=== PATIENT | male | born 1995 | race Caucasian/White ===

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

== ENCOUNTER 2017-01-03 12:17 | Emergency (ER) | payer BC, OTHER ==
[2017-01-03 12:28] VITALS: BP 124/88
--- NOTE | 2017-01-03 12:34 | ED ---
Laceration/Wound HPI - HPI Summary HPI Summary: 21 male presents with complaints of right hand injury and lacerations after punching a car door window just [employer] ~30minutes ago. Patient admits to bleeding. Denies numbness/tingling. Denies pain and is able to move wrist and all digits. Patient states he has had multiple breaks and surgeries on that hand from previous punching incidents. States he was just angry. Denied any other injuries or complaints. No PMHx. Not on anticoagulants. Tetanus is UTD. - History of Current Complaint Stated Complaint: RT HAND LAC Time Seen by Provider: 01/03/17 12:32 Hx Obtained From: Patient Mechanism of Injury: Sharp/Blunt Trauma - punching throught a car glass window Onset/Duration: Sudden Onset Aggravating: Movement Alleviating: Compression Timing: Constant Onset Severity: Moderate Current Severity: None Pain Intensity: 0 Pain Scale Used: 0-10 Numeric Associated Signs & Symptoms: Erthema, Redness - lacerations, abrasion Related Hx: Dominant Hand (Right) - Allergy/Home Medications Allergies/Adverse Reactions: Allergies Allergy/AdvReac Type Severity Reaction Status Date / Time Morphine and Related Allergy Swelling Verified 04/22/16 16:18 PMH/Surg Hx/FS Hx/Imm Hx Endocrine/Hematology History: Denies: Hx Diabetes, Hx Thyroid Disease Cardiovascular History: Denies: Hx Hypertension Respiratory History: Denies: Hx Asthma, Hx Chronic Obstructive Pulmonary Disease (COPD) GI History: Denies: Hx Ulcer Sensory History: Denies: Hx Contacts or Glasses, Hx Hearing Aid Opthamlomology History: Denies: Hx Contacts or Glasses Neurological History: Denies: Hx Dementia, Hx Migraine, Hx Seizures, Hx Transient Ischemic Attacks (TIA) Psychiatric History: Denies: Hx Anxiety, Hx Depression, Hx Schizophrenia, Hx Bipolar Disorder - Surgical History Surgery Procedure, Year, and Place: WISDOM TOOTH REMOVAL 2012. Right hand 2014 Hx Anesthesia Reactions: No - Immunization History Date of Tetanus Vaccine: 4 months ago, 2017 Immunizations Up to Date: Yes Infectious Disease History: No Infectious Disease History: Denies: Hx Clostridium Difficile, Hx Hepatitis, Hx Human Immunodeficiency Virus (HIV), Hx of Known/Suspected MRSA, Hx Shingles, Hx Tuberculosis, Hx Known/ Suspected VRE, Hx Known/Suspected VRSA, History Other Infectious Disease, Traveled Outside the [place] in Last 30 Days - Family History Known Family History: Positive: Hypertension, Other - No known hx of diverticulosis or Crohns dz. - Social History Alcohol Use: None Substance Use Type: Reports: None Smoking Status (MU): Current Every Day Smoker Type: Cigarettes, Smokeless Tobacco Amount Used/How Often: 1-2 cans per day & 1 CIG/DAY Length of Time of Smoking/Using Tobacco: 5 years Have You Smoked in the Last Year: No Review of Systems Constitutional: Negative Cardiovascular: Negative Respiratory: Negative Gastrointestinal: Negative Musculoskeletal: Negative Positive: Other - lacerations and abrasion to right hand Neurological: Negative All Other Systems Reviewed And Are Negative: Yes Physical Exam Triage Information Reviewed: Yes Vital Signs On Initial Exam: Initial Vitals Temp Pulse Resp BP Pulse Ox 96.3 F 87 20 124/88 100 01/03/17 12:25 01/03/17 12:25 01/03/17 12:25 01/03/17 12:25 01/03/17 12:25 Vital Signs Reviewed: Yes Appearance: Positive: Well-Appearing, No Pain Distress, Well-Nourished Skin: Positive: Warm, Skin Color Reflects Adequate Perfusion, Dry, Erythema @ - right hand, Other - multiple abrasions noted on right hand, laceration ~2cm in length .5cm width of epidermal layer, without bone or tendon showing, without noteable FB or glass present on posterior 1st digit MCP joint. small superficial laceration noted on posterior 5th digit PIP joint approxiateely 1 cm. Wounds were irrigated, hand was cleaned. No other lacerations and normal skin exam elsewhere. no edema noted. multiple healed scars noted on right hand. Negative: Cold, Numb, Cyanosis @ Head/Face: Positive: Normal Head/Face Inspection Eyes: Positive: Conjunctiva Clear ENT: Positive: Normal ENT inspection, Hearing grossly normal Neck: Positive: Supple, Nontender, No Lymphadenopathy Respiratory/Lung Sounds: Positive: Clear to Auscultation, Breath Sounds Present. Negative: Rales, Rhonchi, Wheezes Cardiovascular: Positive: Normal, RRR, Pulses are Symmetrical in both Upper and Lower Extremities - 2+ radial b/l. Negative: Murmur, Rub Bowel Sounds: Positive: Present Musculoskeletal: Positive: Normal, Strength/ROM Intact, Pain @ - on palpation of lacerations on right hand, Other - no crepitus, step off or obvious bony deformities noted besides lacerations. oozing/bleeding no arterial bleeds. Negative: Limited @, Interruption @ Neurological: Positive: Normal, Sensory/Motor Intact - sensation intact, Alert, Oriented to Person Place, Time, CN Intact II-III, Reflexes Intact Psychiatric: Positive: Normal AVPU Assessment: Alert Procedures - Laceration/Wound Repair 1 Location: upper extremity - hand Description: Linear Anesthesia: Local, 1.0%, Lido Length, Depth and Shape: ~2cm length .5cm width and epidermal layer Betadine Prep?: Yes Irrigated w/ Saline (ccs): 200 Laceration/Wound Explored: clean, no foreign body removed Closure: Single Layer Suture Type: Prolene Number of Sutures: 5 Layer Closure?: No Sterile Dressing Applied?: Yes - nedra and salvador 2 Location: Other - right hand, 5th digit Description: Linear Length, Depth and Shape: 1cm, superficial Betadine Prep?: No Laceration/Wound Explored: clean, no foreign body removed Closure: Skin Adhesive Sterile Dressing Applied?: No Diagnostics - Vital Signs Vital Signs Temp Pulse Resp BP Pulse Ox 01/03/17 12:28 96.4 F 91 20 124/88 100 01/03/17 12:25 96.3 F 87 20 124/88 100 - Laboratory Lab Statement: Any lab studies that have been ordered have been reviewed, and results considered in the medical decision making process. - Radiology x-ray right hand Xray Interpretation: No Acute Changes - Deformity of the fifth metacarpal from old injury. No fracture is identified. Radiology Interpretation Completed By: Radiologist Laceration Repair Course/Dx - Course Course Of Treatment: patient has had multiple fractures and breaks of the right hand. no acute fracture noted on x-ray. however if pain persists or new symptoms develop recommended repeat imaging. did not want pain management while in ED as patient was in minimal pain. 5 sutures placed without complication using sterile technique. glued smaller lac on 5th digit. told to watch for signs of infection. aware of worsening signs and symptoms. follow up with PCP. keep clean and dry, remove in 7 days. teatnus was up to date 4 months ago. - Differential Dx Differental Diagnoses: Abscess, Avulsion, Cellulitis, Fracture, Healing Wound, Laceration, Tendon Laceration, Other - Clinical Impression Provider Diagnoses: Laceration of right hand, Abrasion of multiple sites of right hand and finger Discharge - Discharge Plan Condition: Stable Disposition: HOME Patient Education Materials: Care For Your Stitches (ED), Laceration (ED) Forms: *Work Release Referrals: Gio Ott MD [Primary Care Provider] - Additional Instructions: Take Aleve or Ibuprofen for pain and inflammation. If your symptoms worsen or new symptoms develop please return. Do not get hand wet or submerge hand in water for 24-48 hours. After, you may wash hands gently, do not scrub. Keep clean and dry. Keep dressing applied for the first 3-5 days. If you develop signs of infection such as redness, swelling, fever/chills, discharge please return to ED or follow up with PCP. Have stitches removed in 5-7 days.
--- NOTE | 2017-01-03 14:09 | RAD ---
Indication: Right hand pain. 4 views of the right hand demonstrates deformity of the fifth metacarpal likely from prior injury. No recent fracture is identified. No other bone or joint abnormality is identified. IMPRESSION: Deformity of the fifth metacarpal. No fracture is identified.
== END 2017-01-03 15:29 | disposition home or self-care (01) ==
LOC: ED 12:17
DX: S61.411A Laceration without foreign body of right hand, initial encounter (principal); S60.511A Abrasion of right hand, initial encounter; W22.8XXA Striking against or struck by other objects, initial encounter; Y93.9 Activity, unspecified; Y92.9 Unspecified place or not applicable; F17.210 Nicotine dependence, cigarettes, uncomplicated
CPT/HCPCS: 12002; 99281

== ENCOUNTER → 2017-04-02 03:08 | Emergency (ER) | payer SELFPAY ==
[2017-04-02 04:09] LABS: Hematocrit 39 % (42-52); Hemoglobin 13.6 g/dl (14.0-18.0); Mean Corpuscular HGB Conc 35 g/dl (31-36); Mean Corpuscular Hemoglobin 30 pg (27-31); Mean Corpuscular Volume 86 fL (80-94); Mean Platelet Volume 10 um3 (7.4-10.4); Red Blood Count 4.57 10^6/ul (4.0-5.4); Red Cell Distribution Width 13 % (10.5-15); White Blood Count 7.4 10^3/ul (3.5-10.8)
[2017-04-02 04:20] LABS: ALT 13 U/L (7-52); AST 14 U/L (13-39); Albumin 4.5 g/dL (3.2-5.2); Alkaline Phosphatase 57 U/L (34-104); Anion Gap 6 mmol/L (2-11); BUN/Creatinine Ratio 16.5 (8-20); Benzodiazepine Urine Screen None Detected (None Detect); Blood Urea Nitrogen 16 mg/dL (6-24); CO2 Carbon Dioxide 27 mmol/L (22-32); Calcium 9.6 mg/dL (8.6-10.3); Chloride 106 mmol/L (101-111); EGFR African American 128.2 (>60); EGFR Non-African American 99.7 (>60); Globulin 2.2 g/dL (2-4); Glucose 96 mg/dL (70-100); Potassium 3.8 mmol/L (3.5-5.0); Sodium 139 mmol/L (133-145); Total Protein 6.7 g/dL (6.4-8.9)
[2017-04-02 04:31] LABS: Urine Bacteria Absent (Absent); Urine Bilirubin Negative (Negative); Urine Glucose Negative (Negative); Urine Nitrite Negative (Negative)
[2017-04-02 04:36] LABS: Acetaminophen < 15 mcg/mL; Alcohol < 10 mg/dL (<10); Salicylate < 2.50 mg/dL (<30)
[2017-04-02 04:51] VITALS: BP 135/67
[2017-04-02 04:54] LABS: TSH (Thyroid Stimulating Horm) 2.32 mcIU/mL (0.34-5.60)
--- NOTE | 2017-04-02 05:10 | ED ---
Rashida Barraza Rebecca, scribed for Alex Sears MD on 04/02/17 at 0504 . Psychiatric Complaint - HPI Summary HPI Summary: Pt is a 21 y/o M who presents to ED c/o SIs. SIs have been present for multiple days with no plan at this time. Sx aggravated by recent stress of a break up and the of a good friend. Denies any pain at this time. No PMHx psychiatric issues. - History Of Current Complaint Chief Complaint: EDMentalHealth Time Seen by Provider: 04/02/17 03:23 Hx Obtained From: Patient Onset/Duration: Lasting Days, Still Present Aggravating Factor(s): Recent Stress Alleviating Factor(s): Nothing Related History: Negative For: Prior Psychiatric Issues Has Suicidal: Reports: Thoughts. Denies: With A Plan Recent Stressor(s): Break up and of a good friend - Allergies/Home Medications Allergies/Adverse Reactions: Allergies Allergy/AdvReac Type Severity Reaction Status Date / Time Morphine and Related Allergy Swelling Verified 04/22/16 16:18 PMH/Surg Hx/FS Hx/Imm Hx Endocrine/Hematology History: Denies: Hx Diabetes, Hx Thyroid Disease Cardiovascular History: Denies: Hx Hypertension Respiratory History: Denies: Hx Asthma, Hx Chronic Obstructive Pulmonary Disease (COPD) GI History: Denies: Hx Ulcer Sensory History: Denies: Hx Contacts or Glasses, Hx Hearing Aid Opthamlomology History: Denies: Hx Contacts or Glasses Neurological History: Denies: Hx Dementia, Hx Migraine, Hx Seizures, Hx Transient Ischemic Attacks (TIA) Psychiatric History: Denies: Hx Anxiety, Hx Depression, Hx Schizophrenia, Hx Bipolar Disorder - Surgical History Surgery Procedure, Year, and Place: WISDOM TOOTH REMOVAL 2012. Right hand 2014 Hx Anesthesia Reactions: No - Immunization History Date of Tetanus Vaccine: 4 months ago, 2017 Infectious Disease History: No Infectious Disease History: Denies: Hx Clostridium Difficile, Hx Hepatitis, Hx Human Immunodeficiency Virus (HIV), Hx of Known/Suspected MRSA, Hx Shingles, Hx Tuberculosis, Hx Known/ Suspected VRE, Hx Known/Suspected VRSA, History Other Infectious Disease, Traveled Outside the [place] in Last 30 Days - Family History Known Family History: Positive: Hypertension, Other - No known hx of diverticulosis or Crohns dz. - Social History Alcohol Use: None Substance Use Type: Reports: None Smoking Status (MU): Current Every Day Smoker Type: Cigarettes, Smokeless Tobacco Amount Used/How Often: 1-2 cans per day & 1 CIG/DAY Length of Time of Smoking/Using Tobacco: 5 years Have You Smoked in the Last Year: No Review of Systems Negative: Fever Positive: Other - SIs All Other Systems Reviewed And Are Negative: Yes Physical Exam Triage Information Reviewed: Yes Vital Signs On Initial Exam: Initial Vitals Temp Pulse Resp BP Pulse Ox 97.7 F 86 18 126/80 98 04/02/17 03:04/02/17 03:04/02/17 03:04/02/17 03:04/02/17 03:09 Vital Signs Reviewed: Yes Appearance: Positive: Well-Appearing, No Pain Distress Skin: Positive: Warm, Other - superficial arm lacs Head/Face: Positive: Normal Head/Face Inspection Eyes: Positive: ARELI ENT: Positive: Hearing grossly normal Neck: Positive: Supple Respiratory/Lung Sounds: Positive: Breath Sounds Present Cardiovascular: Positive: RRR Abdomen Description: Positive: Nontender, Soft Musculoskeletal: Positive: Strength/ROM Intact Neurological: Positive: Alert, Oriented to Person Place, Time, Normal Gait - Fadi Coma Scale Coma Scale Total: 15 Diagnostics - Vital Signs Vital Signs Temp Pulse Resp BP Pulse Ox 04/02/17 04:50 98.7 F 72 17 135/67 99 04/02/17 04:03 97.9 F 71 18 117/69 99 04/02/17 03:09 97.7 F 86 18 126/80 98 - Laboratory Lab Results: Lab Results 04/02/17 04/02/17 04/02/17 Range/Units 03:50 03:50 03:50 WBC 7.4 (3.5-10.8) 10^3/ul RBC 4.57 (4.0-5.4) 10^6/ul Hgb 13.6 L (14.0-18.0) g/dl Hct 39 L (42-52) % MCV 86 (80-94) fL MCH 30 (27-31) pg MCHC 35 (31-36) g/dl RDW 13 (10.5-15) % Plt Count 212 (150-450) 10^3/ul MPV 10 (7.4-10.4) um3 Neut % (Auto) 73.3 (38-83) % Lymph % (Auto) 19.5 L (25-47) % Dawes % (Auto) 5.2 (1-9) % Eos % (Auto) 1.5 (0-6) % Baso % (Auto) 0.5 (0-2) % Absolute Neuts (auto) 5.4 (1.5-7.7) 10^3/ul Absolute Lymphs (auto) 1.4 (1.0-4.8) 10^3/ul Absolute Monos (auto) 0.4 (0-0.8) 10^3/ul Absolute Eos (auto) 0.1 (0-0.6) 10^3/ul Absolute Basos (auto) 0 (0-0.2) 10^3/ul Absolute Nucleated RBC 0.01 10^3/ul Nucleated RBC % 0.1 Sodium 139 (133-145) mmol/L Potassium 3.8 (3.5-5.0) mmol/L Chloride 106 (101-111) mmol/L Carbon Dioxide 27 (22-32) mmol/L Anion Gap 6 (2-11) mmol/L BUN 16 (6-24) mg/dL Creatinine 0.97 (0.67-1.17) mg/dL Est GFR ( Amer) 128.2 (>60) Est GFR (Non-Af Amer) 99.7 (>60) BUN/Creatinine Ratio 16.5 (8-20) Glucose 96 (70-100) mg/dL Calcium 9.6 (8.6-10.3) mg/dL Total Bilirubin 0.50 (0.2-1.0) mg/dL AST 14 (13-39) U/L ALT 13 (7-52) U/L Alkaline Phosphatase 57 (34-104) U/L Total Protein 6.7 (6.4-8.9) g/dL Albumin 4.5 (3.2-5.2) g/dL Globulin 2.2 (2-4) g/dL Albumin/Globulin Ratio 2.0 (1-3) TSH 2.32 (0.34-5.60) mcIU/mL Urine Color Urine Appearance Urine pH (5-9) Ur Specific Pearson (1.010-1.030) Urine Protein (Negative) Urine Ketones (Negative) Urine Blood (Negative) Urine Nitrate (Negative) Urine Bilirubin (Negative) Urine Urobilinogen (Negative) Ur Leukocyte Esterase (Negative) Urine WBC (Auto) (Absent) Urine RBC (Auto) (Absent) Ur Squamous Epith Cells (Absent) Urine Bacteria (Absent) Urine Glucose (Negative) Salicylates < 2.50 (<30) mg/dL Urine Opiates Screen None detected (None Detect) Acetaminophen < 15 mcg/mL Ur Barbiturates Screen None detected (None Detect) Ur Phencyclidine Scrn None detected (None Detect) Ur Amphetamines Screen None detected (None Detect) U Benzodiazepines Scrn None detected (None Detect) Urine Cocaine Screen None detected (None Detect) U Cannabinoids Screen Presumptive positive H (None Detect) Serum Alcohol < 10 (<10) mg/dL 04/02/17 Range/Units 03:50 WBC (3.5-10.8) 10^3/ul RBC (4.0-5.4) 10^6/ul Hgb (14.0-18.0) g/dl Hct (42-52) % MCV (80-94) fL MCH (27-31) pg MCHC (31-36) g/dl RDW (10.5-15) % Plt Count (150-450) 10^3/ul MPV (7.4-10.4) um3 Neut % (Auto) (38-83) % Lymph % (Auto) (25-47) % Dawes % (Auto) (1-9) % Eos % (Auto) (0-6) % Baso % (Auto) (0-2) % Absolute Neuts (auto) (1.5-7.7) 10^3/ul Absolute Lymphs (auto) (1.0-4.8) 10^3/ul Absolute Monos (auto) (0-0.8) 10^3/ul Absolute Eos (auto) (0-0.6) 10^3/ul Absolute Basos (auto) (0-0.2) 10^3/ul Absolute Nucleated RBC 10^3/ul Nucleated RBC % Sodium (133-145) mmol/L Potassium (3.5-5.0) mmol/L Chloride (101-111) mmol/L Carbon Dioxide (22-32) mmol/L Anion Gap (2-11) mmol/L BUN (6-24) mg/dL Creatinine (0.67-1.17) mg/dL Est GFR ( Amer) (>60) Est GFR (Non-Af Amer) (>60) BUN/Creatinine Ratio (8-20) Glucose (70-100) mg/dL Calcium (8.6-10.3) mg/dL Total Bilirubin (0.2-1.0) mg/dL AST (13-39) U/L ALT (7-52) U/L Alkaline Phosphatase (34-104) U/L Total Protein (6.4-8.9) g/dL Albumin (3.2-5.2) g/dL Globulin (2-4) g/dL Albumin/Globulin Ratio (1-3) TSH (0.34-5.60) mcIU/mL Urine Color Straw Urine Appearance Clear Urine pH 7.0 (5-9) Ur Specific Pearson 1.008 L (1.010-1.030) Urine Protein Negative (Negative) Urine Ketones Negative (Negative) Urine Blood Negative (Negative) Urine Nitrate Negative (Negative) Urine Bilirubin Negative (Negative) Urine Urobilinogen Negative (Negative) Ur Leukocyte Esterase Trace H (Negative) Urine WBC (Auto) Trace(0-5/hpf) (Absent) Urine RBC (Auto) Trace(0-2/hpf) (Absent) Ur Squamous Epith Cells Present H (Absent) Urine Bacteria Absent (Absent) Urine Glucose Negative (Negative) Salicylates (<30) mg/dL Urine Opiates Screen (None Detect) Acetaminophen mcg/mL Ur Barbiturates Screen (None Detect) Ur Phencyclidine Scrn (None Detect) Ur Amphetamines Screen (None Detect) U Benzodiazepines Scrn (None Detect) Urine Cocaine Screen (None Detect) U Cannabinoids Screen (None Detect) Serum Alcohol (<10) mg/dL Result Diagrams: 04/02/17 03:50 04/02/17 03:50 Lab Statement: Any lab studies that have been ordered have been reviewed, and results considered in the medical decision making process. Course/Dx - Course Assessment/Plan: Pt is a 21 y/o M who presents to ED c/o SIs. SIs have been present for multiple days with no plan at this time. Sx aggravated by recent stress of a break up and the of a good friend. No PMHx psychiatric issues. Medically cleared for MHE at 0445. - Differential Dx/Clinical Impression Provider Diagnosis: Suicidal ideations Discharge - Discharge Plan Condition: Stable Disposition: HOME Referrals: Gio Ott MD [Primary Care Provider] - Additional Instructions: Per completion of a mental health evaluation, you are cleared for release and do not require inpatient psychiatric hospitalization at this time. Please go to nearest emergency room or call 911 if safety concerns arise or condition worsens. Contact [facility] for a walk in appointment today. [address] [place] [address] Important Phone Numbers: [facility] [phone] Suicide Prevention and Crisis Services [phone] National Suicide Prevention Lifeline 028-008-SKXE (3423) [facility] [phone] Alcoholics Anonymous [phone] [facility] [phone] [place] [employer] [phone] The documentation as recorded by the Rashida ochoa Rebecca accurately reflects the service I personally performed and the decisions made by me, Alex Sears MD.
== END | disposition home or self-care (01) ==
LOC: ED 03:08
DX: T14.91 Suicide attempt (principal); F17.210 Nicotine dependence, cigarettes, uncomplicated
CPT/HCPCS: 36415; 80053; 80307; 80320; 80329; 81003; 81015; 84443; 85025; 87086; 99284; G0480

== ENCOUNTER 2017-09-19 13:31 | Emergency (ER) | payer OTHER ==
[2017-09-19 13:41] VITALS: BP 130/91
--- NOTE | 2017-09-19 13:48 | UC ---
Complaint Male HPI - HPI Summary HPI Summary: Pt presents with b/l inguinal pain and penile drainage. He tells me that he had unprotected sex with his girlfriend about 1 month ago and 5 days ago she told him that she was unfaithful to him and has been dx'd with chlamydia. About 1 week ago he started to have mild penile drainage of white-yellow purulent matter with b/l inguinal and suprapubic tenderness. He is experiencing burning with urination. Denies fevers or chills. He has not had sexual intercourse since his girlfriend ~1 month ago. - History of Current Complaint Chief Complaint: UCGU Stated Complaint: STD TESTING Time Seen by Provider: 09/19/17 13:47 Hx Obtained From: Patient Onset/Duration: Gradual Onset Timing: Constant Severity Initially: Moderate Severity Currently: Moderate Pain Intensity: 4 Pain Scale Used: 0-10 Numeric - Allergies/Home Medications Allergies/Adverse Reactions: Allergies Allergy/AdvReac Type Severity Reaction Status Date / Time morphine Allergy Swelling Verified 09/19/17 13:41 PMH/Surg Hx/FS Hx/Imm Hx Previously Healthy: Yes - Surgical History Surgical History: Yes Surgery Procedure, Year, and Place: WISDOM TOOTH REMOVAL 2012. Right hand 2014 - Family History Known Family History: Positive: Hypertension, Other - No known hx of diverticulosis or Crohns dz. - Social History Alcohol Use: None Substance Use Type: None Smoking Status (MU): Former Smoker Type: Cigarettes, Smokeless Tobacco Amount Used/How Often: 1-2 cans per day & 1 CIG/DAY Length of Time of Smoking/Using Tobacco: 5 years Have You Smoked in the Last Year: No - Immunization History Vaccination Up to Date: Yes Review of Systems Constitutional: Negative Skin: Negative Respiratory: Negative Cardiovascular: Negative Gastrointestinal: Negative Genitourinary: Dysuria, Vaginal/Penile Burning, Vaginal/Penile Discharge, Vaginal/Penile Tenderness Neurological: Negative Psychological: Negative All Other Systems Reviewed And Are Negative: Yes Physical Exam Triage Information Reviewed: Yes Appearance: Well-Appearing, No Pain Distress, Well-Nourished Vital Signs: Initial Vital Signs Temp 98.3 F 09/19/17 13:37 Pulse 118 09/19/17 13:37 Resp 18 09/19/17 13:37 BP 130/91 09/19/17 13:37 Pulse Ox 99 09/19/17 13:37 Vital Signs Reviewed: Yes Neck: Positive: Supple, Nontender, No Lymphadenopathy Respiratory: Positive: Lungs clear, Normal breath sounds, No respiratory distress, No accessory muscle use Cardiovascular: Positive: RRR, No Murmur, Pulses Normal Abdomen Description: Positive: Nontender, No Organomegaly, Soft. Negative: CVA Tenderness (R), CVA Tenderness (L), Distended, Guarding Bowel Sounds: Positive: Present Neurological: Positive: Alert Psychological: Positive: Age Appropriate Behavior Skin: Negative: rashes - Additional Comments exam: Penile meatus with mild white discharge. B/L inguinal lymphadenopathy with moderate tenderness. Testes NTTP. No scrotal mass or lesions. Complaint Male Course/Dx - Course Course Of Treatment: I offered him more STD testing such as HIV, RPR, and hepatits - he declined due to fear of needles and said he just wants testing for GC/Chlamydia as his gf told him she has Chlamydia. Ceftriaxone 250mg and Azithromycin 1gm in clinic today. UA reveals infection, due to this and inguinal tenderness/lymphadenopathy - will place him on Doxycycline for 14 days and call with urine results. - Differential Dx/Diagnosis Provider Diagnoses: Chlamydia - penis. UTI Discharge - Discharge Plan Condition: Stable Disposition: HOME Prescriptions: DOXYcycline CAP(*) [DOXYcycline 100MG CAP(*)] 100 mg PO BID #28 cap Patient Education Materials: Chlamydia (ED) Referrals: Gio Ott MD [Primary Care Provider] - Additional Instructions: If you develop a fever, shortness of breath, chest pain, new or worsening symptoms - please call your PCP or go to the ED. Your blood pressure was mildly at todays visit. Please see your primary provider within 4 weeks for recheck and re-evaluation. 1) Please abstain from sexual activity for at least week AFTER your symptoms resolve.
[2017-09-19] MEDS ORDERED: Lidocaine 1% MPF* 2 ML VIAL INJ ONE (13:59)
[2017-09-19] MEDS ORDERED: cefTRIAXone VIAL(*) 250 MG VIAL IM ONE (13:59)
[2017-09-19] MEDS ORDERED: Azithromycin TAB* 250 MG PO ONE (14:00)
== END 2017-09-19 14:35 | disposition home or self-care (01) ==
LOC: UCEAST 13:31
DX: A56.8 Sexually transmitted chlamydial infection of other sites (principal); N39.0 Urinary tract infection, site not specified; Z87.891 Personal history of nicotine dependence
CPT/HCPCS: 81003; 87086; 87491; 87591; 96372; 99212; A9270-GY; G0463; J0696

== ENCOUNTER 2018-06-08 15:02 | Emergency (ER) | payer OTHER ==
[2018-06-08 15:15] VITALS: BP 117/72
--- NOTE | 2018-06-08 15:36 | UC ---
Complaint Male HPI - HPI Summary HPI Summary: 22 y/o male presents to the urgent care c/o pt states that he was informed by an ex girlfriend that cheated, she was positive for an std. pt was not told which std. pt states he is having burning with voiding and has bumps in his pelvic area. pt states this started about 2 weeks ago. - History of Current Complaint Chief Complaint: UCGU Stated Complaint: STD TESTING Time Seen by Provider: 06/08/18 15:36 Hx Obtained From: Patient Onset/Duration: Gradual Onset, Lasting Weeks - 1 week Pain Intensity: 5 - Allergies/Home Medications Allergies/Adverse Reactions: Allergies Allergy/AdvReac Type Severity Reaction Status Date / Time morphine Allergy Swelling Verified 06/08/18 15:15 PMH/Surg Hx/FS Hx/Imm Hx - Additional Past Medical History Additional PMH: Hx of Gonorrhea and chlamydia Previously Healthy: Yes - Surgical History Surgical History: Yes Surgery Procedure, Year, and Place: WISDOM TOOTH REMOVAL 2011. Right hand 2013 - Family History Known Family History: Positive: Hypertension, Other - No known hx of diverticulosis or Crohns dz. - Social History Alcohol Use: Rare Substance Use Type: None Smoking Status (MU): Former Smoker Type: eCigarettes Amount Used/How Often: 1-2 cans per day & 1 CIG/DAY Length of Time of Smoking/Using Tobacco: 5 years Have You Smoked in the Last Year: No - Immunization History Vaccination Up to Date: Yes Physical Exam - Summary Physical Exam Summary: VITAL SIGNS: Reviewed. GENERAL: Patient is a well developed and nourished male who is sitting comfortable in the examining table. Patient is not in any acute respiratory distress. HEAD AND FACE: No signs of trauma. No ecchymosis, hematomas or skull depressions. No sinus tenderness. EYES: PERRLA, EOMI x 2, No injected conjunctiva, clear watery eyes, no nystagmus. No photophobia. EARS: Hearing grossly intact. Ear canals and tympanic membranes are within normal limits. MOUTH: pharynx with no erythema, no exudates,no palatal petechiae. no B/L tonsillar enlargement Uvula in midline. NECK: Supple, trachea is midline, no lymphadenopathy, no JVD, no carotid bruit, no c-spine tenderness, neck with full ROM. CHEST: Symmetric, no tenderness at palpation LUNGS: Clear to auscultation bilaterally. No wheezing or crackles. CVS: Regular rate and rhythm, S1 and S2 present, no murmurs or gallops appreciated. ABDOMEN: Soft, non-tender. No signs of distention. No rebound no guarding, and no masses palpated. Bowel sounds are normal. 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 Urinary meatus clear. Foreskin retracts easily. BACK:no scoliosis or lesions, non tender to palpation, No B/L CVA tenderness EXTREMITIES: FROM in all major joints, no edema, no cyanosis or clubbing. NEURO: Alert and oriented x 3. No acute neurological deficits. Speech is normal and follows commands. SKIN: Dry and warm Triage Information Reviewed: Yes Vital Signs: Initial Vital Signs Temp 98.5 F 06/08/18 15:09 Pulse 105 06/08/18 15:09 Resp 18 06/08/18 15:09 BP 117/72 06/08/18 15:09 Pulse Ox 100 06/08/18 15:09 Complaint Male Course/Dx - Course Course Of Treatment: Sample sent to Lab for G/C, trichomonas and affirm panel. Swab taken from blisters and sent to lab for wound culture to r/o herpes. UA: + trace leukoesterase, 2+blood. test:negative. Pt given Rocephin IM inj and azithromycin PO for prophylactic treatment for GC/chlamydia. Rx Acyclovir Po for herpes and Metronidazole PO for trichomonas. Pt educated on STD's and protection. Given referral for [facility] for further management on STD's and PAP. Advised she will be notified if any abnormal result from lab. Pt understood and agreed with plan of care. - Differential Dx/Diagnosis Differential Diagnosis/HQI/PQRI: Epididymitis, Prostatitis, Urinary Tract Infection, Other Provider Diagnoses: 1-Gonorrhea and Chlamydia. 2- Genital Herpes. 3- Screening for STD's Discharge - Sign-Out/Discharge Documenting (check all that apply): Patient Departure - D/c home All imaging exams completed and their final reports reviewed: No Studies - Discharge Plan Condition: Stable Disposition: HOME Prescriptions: ValACYclovir (*) [Valtrex 1 GM(*)] 1 gm PO BID #14 tab Patient Education Materials: Genital Herpes Simplex (ED), Sexually Transmitted Diseases (ED), Gonorrhea (ED), Safe Sex Practices for Adolescents (ED) Referrals: Gio Ott MD [Primary Care Provider] - 3 Days Additional Instructions: 1-You were given prophylactic treatment today for GC and chlamydia and trichomonas for your penile discharge. 2- Specimen were sent to lab, if anything abnormality you will receive a call from us for further treatment. 3- Sample was taken from your penile rash to r/o Herpes. Please take Valtrex Po as directed to alleviate rash. 4-Please f/u w/ [facility] for further screening for STD's since your decline testing for HIV, Hep C, Hep B 5- If symptoms do not resolved please f/u w/ your PCP or return here at the clinic for further management - Billing Disposition and Condition Condition: STABLE Disposition: Home
[2018-06-08] MEDS ORDERED: cefTRIAXone VIAL(*) 250 MG VIAL IM ONE (15:57)
[2018-06-08] MEDS ORDERED: Lidocaine 1% MPF* 2 ML VIAL INJ ONE (15:59)
[2018-06-08] MEDS ORDERED: Azithromycin TAB* 250 MG PO ONE (16:00)
[2018-06-08] MEDS ORDERED: metroNIDAZOLE TAB* 250 MG PO ONE (16:01)
[2018-06-08] MEDS ORDERED: Lidocaine 1%* 5 ML VIAL ONE (16:06)
[2018-06-08] MEDS ORDERED: Lidocaine 1%* 5 ML VIAL INJ ONE (16:44)
--- NOTE | 2018-06-09 13:30 | UC ---
- Progress Note Progress Note: Lab work from June 08, 2018 came back positive for chlamydia and gonorrhea. Patient was treated in clinic on June 08, 2018 with Rocephin and azithromycin. Nursing to call patient inform him of the results and the appropriate follow-up. Discharge - Sign-Out/Discharge Documenting (check all that apply): Patient Departure All imaging exams completed and their final reports reviewed: No Studies - Discharge Plan Condition: Stable Disposition: HOME Prescriptions: ValACYclovir (*) [Valtrex 1 GM(*)] 1 gm PO BID #14 tab Patient Education Materials: Genital Herpes Simplex (ED), Sexually Transmitted Diseases (ED), Gonorrhea (ED), Safe Sex Practices for Adolescents (ED) Referrals: Gio Ott MD [Primary Care Provider] - 3 Days Additional Instructions: 1-You were given prophylactic treatment today for GC and chlamydia and trichomonas for your penile discharge. 2- Specimen were sent to lab, if anything abnormality you will receive a call from us for further treatment. 3- Sample was taken from your penile rash to r/o Herpes. Please take Valtrex Po as directed to alleviate rash. 4-Please f/u w/ [facility] for further screening for STD's since your decline testing for HIV, Hep C, Hep B 5- If symptoms do not resolved please f/u w/ your PCP or return here at the clinic for further management - Billing Disposition and Condition Condition: STABLE Disposition: Home
== END 2018-06-08 17:05 | disposition home or self-care (01) ==
LOC: UCEAST 15:02
DX: A54.9 Gonococcal infection, unspecified (principal); A74.9 Chlamydial infection, unspecified; A60.00 Herpesviral infection of urogenital system, unspecified; R30.0 Dysuria; Z88.5 Allergy status to narcotic agent; Z87.891 Personal history of nicotine dependence
CPT/HCPCS: 81003; 87070; 87086; 87205; 87491; 87529; 87591; 87661; 96372; 99212; A9270-GY; G0463; J0696

== ENCOUNTER 2018-11-04 12:00 | Emergency (ER) | payer OTHER ==
--- NOTE | 2018-11-04 12:11 | UC ---
Lower Extremity/Ankle HPI - HPI Summary HPI Summary: 23 yo male presents with b/l inner thigh rash. 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 Has had some mild chaffing to his inner thighs. This morning he woke up and both insides of his thighs were very red and tender to touch. They feel like they are "burning". Hurts to walk as his jeans rub here. He has not applied any creams, lotions, or bandaged. - History of Current Complaint Stated Complaint: SWOLLEN INNER THIGHS Time Seen by Provider: 11/04/18 12:10 Hx Obtained From: Patient Onset/Duration: Sudden Onset Severity Initially: Severe Severity Currently: Severe Pain Intensity: 7 Pain Scale Used: 0-10 Numeric - Allergies/Home Medications Allergies/Adverse Reactions: Allergies Allergy/AdvReac Type Severity Reaction Status Date / Time morphine Allergy Swelling Verified 06/08/18 15:15 PMH/Surg Hx/FS Hx/Imm Hx - Additional Past Medical History Additional PMH: Herpes - Surgical History Surgical History: Yes Surgery Procedure, Year, and Place: WISDOM TOOTH REMOVAL 2012. Right hand 2013 - Family History Known Family History: Positive: Hypertension, Other - No known hx of diverticulosis or Crohns dz. - Social History Occupation: Employed Full-time Lives: With Family Alcohol Use: Rare Substance Use Type: None Smoking Status (MU): Former Smoker Type: eCigarettes Amount Used/How Often: 1-2 cans per day & 1 CIG/DAY Length of Time of Smoking/Using Tobacco: 5 years Have You Smoked in the Last Year: No - Immunization History Vaccination Up to Date: Yes Review of Systems All Other Systems Reviewed And Are Negative: Yes Constitutional: Positive: Negative Skin: Positive: Rash Respiratory: Positive: Negative Cardiovascular: Positive: Negative Gastrointestinal: Positive: Negative Neurological: Positive: Negative Psychological: Positive: Negative Physical Exam - Summary Physical Exam Summary: GENERAL: NAD. WDWN. No pain distress. SKIN: Inner thighs with 10.0cm area of moderately erythematous patch. TTP. No warmth, edema, open wound, or drainage. NECK: Supple. Nontender. No lymphadenopathy. CHEST: No accessory muscle use. Breathing comfortably and in no distress. CV: Pulses intact. Cap refill <2seconds NEURO: Alert. PSYCH: Age appropriate behavior. 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 In the clinic a thin layer of hydrocortisone was applied to a bandage and the bandage placed on his inner thighs. Pt was advised to use this for the rest of today and then tomorrow to start using aquaphor and to apply a bandage. F/u if symptoms do not improve. - Differential Dx/Diagnosis Provider Diagnosis: Contact dermatitis Discharge - Sign-Out/Discharge Documenting (check all that apply): Patient Departure All imaging exams completed and their final reports reviewed: No Studies - Discharge Plan Condition: Stable Disposition: HOME Prescriptions: [place] [Aquaphor Advanced Therapy] 1 oin TOPICAL BID #1 jar Patient Education Materials: Dermatitis (ED) Referrals: Gio Ott MD [Primary Care Provider] - Additional Instructions: If you develop a fever, shortness of breath, chest pain, new or worsening symptoms - please call your PCP or go to the ED. 1) Keep the dressing applied for the rest of today. 2) Tomorrow apply a thin layer of Aquaphor (prescription below) and apply another dressing until well healed - Billing Disposition and Condition Condition: STABLE Disposition: Home
[2018-11-04] MEDS ORDERED: Hydrocortisone 1% CREAM* 30 GM TUBE TOPICAL ONE (12:18)
[2018-11-04 12:20] VITALS: BP 123/71
== END 2018-11-04 12:40 | disposition home or self-care (01) ==
LOC: UCEAST 12:00
DX: L25.9 Unspecified contact dermatitis, unspecified cause (principal); Z88.5 Allergy status to narcotic agent; Z87.891 Personal history of nicotine dependence
CPT/HCPCS: 99212; A9270-GY; G0463

== ENCOUNTER 2018-11-27 14:45 | Emergency (ER) | payer OTHER ==
[2018-11-27] MEDS ORDERED: Ibuprofen TAB* 600 MG PO ONE (14:48)
[2018-11-27 15:01] VITALS: BP 119/67
--- NOTE | 2018-11-27 15:07 | UC ---
Lower Extremity/Ankle HPI - HPI Summary HPI Summary: [employer] patient fell sideways with foot planted in mud pain in posterior lateral ankle---unable to weight bear--n/m/c intact distally - History of Current Complaint Chief Complaint: UCLowerExtremity Stated Complaint: ANKLE INJURY Time Seen by Provider: 11/27/18 14:57 Hx Obtained From: Patient Onset/Duration: Sudden Onset Pain Intensity: 7 Pain Scale Used: 0-10 Numeric Aggravating Factor(s): Standing, Ambulation Alleviating Factor(s): Rest, Elevation, Ice Able to Bear Weight: No - Allergies/Home Medications Allergies/Adverse Reactions: Allergies Allergy/AdvReac Type Severity Reaction Status Date / Time morphine Allergy Swelling Verified 11/27/18 15:01 PMH/Surg Hx/FS Hx/Imm Hx Previously Healthy: Yes - Surgical History Surgical History: Yes Surgery Procedure, Year, and Place: WISDOM TOOTH REMOVAL 2011. Right hand 2013 - Family History Known Family History: Positive: Hypertension, Other - No known hx of diverticulosis or Crohns dz. - Social History Occupation: Employed Full-time Lives: With Family Alcohol Use: Rare Substance Use Type: None Smoking Status (MU): Former Smoker Type: eCigarettes Amount Used/How Often: 1-2 cans per day & 1 CIG/DAY Length of Time of Smoking/Using Tobacco: 5 years Have You Smoked in the Last Year: No Household Exposure Type: Cigarettes - Immunization History Vaccination Up to Date: Yes Review of Systems All Other Systems Reviewed And Are Negative: Yes Constitutional: Positive: Negative Skin: Positive: Negative Eyes: Positive: Negative ENT: Positive: Negative Respiratory: Positive: Negative Cardiovascular: Positive: Negative Gastrointestinal: Positive: Negative Genitourinary: Positive: Negative Motor: Positive: Decreased ROM - right ankle Neurovascular: Positive: Negative Musculoskeletal: Positive: Arthralgia, Edema Neurological: Positive: Negative Psychological: Positive: Negative Is Patient Immunocompromised?: No Physical Exam Triage Information Reviewed: Yes Appearance: Well-Appearing, No Pain Distress, Well-Nourished Vital Signs: Initial Vital Signs Temp 98 F 11/27/18 14:56 Pulse 108 11/27/18 14:56 Resp 16 11/27/18 14:56 BP 119/67 11/27/18 14:56 Pulse Ox 98 11/27/18 14:56 Vital Signs Reviewed: Yes Eye Exam: Normal Eyes: Positive: Conjunctiva Clear ENT Exam: Normal ENT: Positive: Normal ENT inspection, Hearing grossly normal. Negative: Trismus , Muffled voice, Hoarse voice Dental Exam: Normal Neck exam: Normal Neck: Positive: Supple, Nontender, No Lymphadenopathy Respiratory Exam: Normal Respiratory: Positive: Chest non-tender, No respiratory distress, No accessory muscle use Cardiovascular Exam: Normal Cardiovascular: Positive: RRR, No Murmur, Pulses Normal, Brisk Capillary Refill Musculoskeletal Exam: Other - right ankle Musculoskeletal: Positive: Strength Limited @, ROM Limited @, Edema @ Neurological Exam: Normal Neurological: Positive: Alert, Muscle Tone Normal Psychological Exam: Normal Psychological: Positive: Normal Response To Family Skin Exam: Normal Diagnostics - Radiology No standard instances Radiology Interpretation Completed By: Radiologist Summary of Radiographic Findings: non displaced posterior tibial fracture Re-Evaluation - Re-Evaluation First Eval Change: Improved - n/m/c intact distally---before and after posterior splint applied by la Lower Extremity Course/Dx - Course Course Of Treatment: non-weight bearing on crutches, rice, follow with orthopedic MD on Wednesday. patient refused Hydrocodone, maintain strict non weight bearing - Differential Dx/Diagnosis Provider Diagnosis: Fracture, posterior malleolus Discharge - Sign-Out/Discharge Documenting (check all that apply): Patient Departure All imaging exams completed and their final reports reviewed: Yes - Discharge Plan Condition: Stable Disposition: HOME Prescriptions: Ibuprofen TAB* [Motrin TAB* 600 MG] 600 mg PO Q6H PRN #40 tab PRN Reason: Pain Patient Education Materials: Ankle Fracture (ED), Crutch Instructions (ED), R.I.C.E. Treatment (ED) Referrals: Bonilla Gallardo MD [Medical Doctor] - 1 Day Additional Instructions: Remain completely non weight bearing--no work or sports untilled cleared by orthopedic MD - Billing Disposition and Condition Condition: STABLE Disposition: Home
--- NOTE | 2018-11-28 08:00 | PN ---
Progress Note - Progress Note Date of Service: 11/27/18 Note: Formal read of xray by radiology ANKLE: STS, no acute fracture
== END 2018-11-27 16:10 | disposition home or self-care (01) ==
LOC: UCEAST 14:45
DX: S82.841A Displaced bimalleolar fracture of right lower leg, initial encounter for closed fracture (principal); Z88.5 Allergy status to narcotic agent; Z87.891 Personal history of nicotine dependence; W18.39XA Other fall on same level, initial encounter; Y92.9 Unspecified place or not applicable
CPT/HCPCS: 99213; A9270-GY; G0463

== ENCOUNTER 2019-10-11 17:22 | Emergency (ER) | payer OTHER ==
[2019-10-11 17:44] VITALS: BP 129/78
== END 2019-10-11 19:45 | disposition left against medical advice (07) ==
LOC: UCEAST 17:22
DX: Z53.21 Procedure and treatment not carried out due to patient leaving prior to being seen by health care provider (principal)
CPT/HCPCS: 81003; 87086